=== PATIENT | female | born 1980 | race Two or more races ===

== ENCOUNTER 2024-08-27 07:10 | Day surgery (SDC) | payer MEDICAID, SELFPAY ==
[2024-08-26 15:26] VITALS: BMI 21.8
[2024-08-27] VITALS (14 sets, daily range): BP systolic 83–105; BP diastolic 58–76; PULSE 49–73; RESP 10–20; TEMP 36.3–36.7; O2SAT 95–100; BMI 20.9
[2024-08-27 07:56] LABS: HCG Qualitative,Urine Negative
[2024-08-27] MEDS: RINGERS LACTATED 1000 ML 1,000 ML 125 ML IV (08:44)
[2024-08-27] MEDS: DiphenhydrAMINE INJ 50 MG/ML VIAL 25 MG IV (08:52)
[2024-08-27] MEDS: MIDAZOLAM INJ 1 MG/ML VIAL 2 ML (ASD USE ONLY) 2 MG IV (09:11)
[2024-08-27] MEDS: fentaNYL CIT INJ 50 mCg/ML AMP 2ML (ASD USE ONLY) IV (09:11)
== END 2024-08-27 10:25 | disposition home or self-care (01) ==
PROVIDERS: PCP Physician Assistant; Referring Provider Internal Medicine Gastroenterology; Visit Provider Internal Medicine Gastroenterology
PROC: 0DBE8ZX Excision of Large Intestine, Via Natural or Artificial Opening Endoscopic, Diagnostic (ICD-10-PCS; CPT 45380; principal; 2024-08-27 08:15)
PROC: (CPT 43239; 2024-08-27 08:15)
DX: K22.2 Esophageal obstruction (principal); K29.70 Gastritis, unspecified, without bleeding; K64.9 Unspecified hemorrhoids; K31.89 Other diseases of stomach and duodenum
CPT/HCPCS: 43249; 43239; 45380; 81025; C1726; J1200; J2250; J3010; J7120